=== PATIENT | male | born 1960 | race Caucasian/White ===

== ENCOUNTER 2020-09-29 13:11 | Emergency (ER) | payer BC ==
--- NOTE | 2020-09-29 13:51 | EDM.PDOC ---
ED HPI GENERAL MEDICAL PROBLEM - General Chief Complaint: Chest Pain Stated Complaint: CHEST PAIN AND LT ARM PAIN Time Seen by Provider: 09/29/20 13:51 - History of Present Illness INITIAL COMMENTS - FREE TEXT/NARRATIVE: 60-year-old male presents to the emergency room with chest pain. This pain is been ongoing for the last week. It seems to come and go. He does not seem to have pain at rest it can be triggered by activity. Yesterday he was using a lever with his left arm and this seemed to make it worse. Patient states chest pain is left lateral chest it is a sharp spot almost feels like somebody kicked him in the ribs. However this pain does radiate into his left arm at times. Patient does not have a history of coronary artery disease and his past medical history is for the most part unremarkable except for an appendicitis and ruptured appendix 10 to 12 years ago. The patient has a smoking history 1 pack/day for quite a long time he is advised in no uncertain terms to quit smoking. He is not treated for hypertension or hyperlipidemia and otherwise enjoys good health. He does not take any routine medications however his gave him a baby aspirin before coming in today. He does not have any reflux or gastritis-like symptoms. No significant family history of coronary artery disease. Left Chest Pain Score (Numeric/FACES): 5 - Related Data Allergies Allergy/AdvReac Type Severity Reaction Status Date / Time No Known Allergies Allergy Verified 09/29/20 13:17 Home Meds: Home Meds . [No Known Home Meds] 09/29/20 [History] Past Medical History HEENT History: Reports: Hard of Hearing, Impaired Vision Other HEENT History: wears glasses - Past Surgical History GI Surgical History: Reports: Appendectomy Social & Family History - Tobacco Use Tobacco Use Status *Q: Current Every Day Tobacco User Years of Tobacco use: 30 Packs/Tins Daily: 1 - Caffeine Use Caffeine Use: Reports: Coffee, Soda - Recreational Drug Use Recreational Drug Use: No ED ROS GENERAL - Review of Systems Review Of Systems: See Below Constitutional: Reports: No Symptoms HEENT: Reports: No Symptoms Respiratory: Reports: Shortness of Breath (Not new he attributes this to his smoking history) Cardiovascular: Reports: Chest Pain, Dyspnea on Exertion. Denies: Edema, Palpitations, Syncope GI/Abdominal: Reports: No Symptoms : Reports: No Symptoms Musculoskeletal: Reports: Other (He may have a chest wall component with this) Neurological: Reports: No Symptoms ED EXAM, GENERAL - Physical Exam Exam: See Below Exam Limited By: No Limitations General Appearance: Alert, No Apparent Distress Head: Atraumatic, Normocephalic Neck: No: Lymphadenopathy (L), Lymphadenopathy (R) Respiratory/Chest: No Respiratory Distress, Lungs Clear, Normal Breath Sounds, Other (Some mild chest wall discomfort with palpation left lateral chest) Cardiovascular: Regular Rate, Rhythm, No Edema, No Murmur GI/Abdominal: Normal Bowel Sounds, Soft, Non-Tender Back Exam: Normal Inspection. No: CVA Tenderness (L), CVA Tenderness (R) Extremities: Normal Inspection, No Pedal Edema Neurological: Alert, Oriented, Normal Cognition #1 Interpretation EKG Date: 09/29/20 Rhythm: NSR Dresser: Normal P-Wave: Present QRS: Other (Intraventricular conduction delay favoring right bundle branch block) ST-T: Other (Minimal nonspecific nondiagnostic ST changes) QT: Normal Comparison: NA - No Prior EKG EKG Interpretation Comments: Abnormal nondiagnostic EKG Course - Vital Signs Last Recorded V/S: Last Vital Signs Temp 36.9 C 09/29/20 13:17 Pulse 67 09/29/20 13:17 Resp 12 09/29/20 13:17 BP 159/83 H 09/29/20 13:17 Pulse Ox 100 09/29/20 13:17 - Orders/Labs/Meds Labs: Laboratory Tests 09/29/20 09/29/20 Range/Units 13:20 13:20 PT 11.2 (9.7-12.0) SECONDS INR 1.05 APTT 29.5 (21.7-31.4) SECONDS D-Dimer, Quantitative < 0.19 L (0.19-0.50) mg/L Sodium 139 (136-145) mEq/L Potassium 3.6 (3.5-5.1) mEq/L Chloride 103 (98-107) mEq/L Carbon Dioxide 27 (21-32) mEq/L Anion Gap 12.6 (5-15) BUN 12 (7-18) mg/dL Creatinine 1.0 (0.7-1.3) mg/dL Est Cr Clr Drug Dosing 80.64 mL/min Estimated GFR (MDRD) > 60 (>60) mL/min BUN/Creatinine Ratio 12.0 L (14-18) Glucose 122 H (74-106) mg/dL Calcium 8.9 (8.5-10.1) mg/dL Total Bilirubin 0.5 (0.2-1.0) mg/dL AST 17 (15-37) U/L ALT 27 (16-63) U/L Alkaline Phosphatase 63 (46-116) U/L Troponin I < 0.017 (0.00-0.056) ng/mL Total Protein 7.5 (6.4-8.2) g/dl Albumin 4.0 (3.4-5.0) g/dl Globulin 3.5 gm/dL Albumin/Globulin Ratio 1.1 (1-2) Meds: Medications Discontinued Medications Generic Name Dose Route Start Last Admin Trade Name Freq PRN Reason Stop Dose Admin Aspirin 324 mg 09/29/20 14:01 09/29/20 14:19 Aspirin PO 09/29/20 14:02 324 mg ONETIME ONE Administration - Re-Assessments/Exams Free Text/Narrative Re-Assessment/Exam: 09/29/20 17:22 Patient's EKG shows minimal nonspecific nondiagnostic ST changes. The patient is doing well at this time. He is pain-free. Troponin is negative chest x-ray is unrevealing remaining labs are noncontributory. Patient is strongly encouraged to quit smoking. He is also encouraged to follow-up with Dr. Quintana. He would like to go home we will discharge at this time. Departure - Departure Time of Disposition: 17:24 Disposition: Home, Self-Care 01 Clinical Impression: Chest pain Referrals: PCP,None [Primary Care Provider] - Alex Quintana Jr, MD [Ordering Only Provider] - Forms: ED Department Discharge Additional Instructions: Return to the emergency room with any questions problems or worsening symptoms Take a baby aspirin daily 81 mg enteric-coated Follow-up with Dr. Quintana this week discussed the risks and benefits of cardiac stress testing. Also discuss screening for lung cancer with your smoking history. Sepsis Event Note (ED) - Evaluation Sepsis Screening Result: No Definite Risk - Focused Exam Vital Signs: Vital Signs Temp Pulse Resp BP Pulse Ox 09/29/20 13:17 36.9 C 67 12 159/83 H 100
[2020-09-29] MEDS ORDERED: Aspirin 81 MG Tab.Chew PO ONE (14:01)
--- NOTE | 2020-09-29 15:13 | CR ---
Chest: Portable view of the chest was obtained. Comparison: Prior chest x-ray of 09/03/09. Heart size and mediastinum: Heart size and mediastinum are normal. No mediastinal mass is seen. Lungs: Lungs are clear with no acute parenchymal change. No pleural thickening is seen. Osseous: Bony structures show nothing acute. Impression: 1. Nothing acute is seen on portable chest x-ray. Diagnostic code #1
== END 2020-09-29 17:35 | disposition home or self-care (01) ==
LOC: JD.ED 13:11
DX: R07.9 Chest pain, unspecified (principal); F17.210 Nicotine dependence, cigarettes, uncomplicated
CPT/HCPCS: 36415; 71045; 80053; 84484; 85379; 85610; 85730; 99285; A9270; 93010; 99284